=== PATIENT | female | born 1960 | race Caucasian/White ===

== ENCOUNTER → 2017-04-11 | Day surgery (SDC) | payer BC ==
[~2017-04-11] VITALS: Ht 157.5 cm; Wt 79.5 kg
[~2017-04-11] MED LIST: ACETAMINOPHEN 325 MG TAB ONE; ACETAMINOPHEN 325 MG TAB PO PRN; ASPI81TA28 PO; ATOR10TA88 PO; ATROPINE SULFATE 0.1 MG/ML 5ML SYR IV PRN; ERGO1CAP41 PO; FENTANYL CITRATE INJ 50 MCG/1 ML 2 ML VIAL ONE; HEPARIN SOD (PORCINE) 1000 UNIT/ML 10 ML VIAL ONE; LEVO75TA5 PO; METO1TAB31 PO; MIDAZOLAM HCL 1 MG/ML 2ML VIAL ONE; MISCCAP80; NITROGLYCERIN/D5W 100MCG/ML 20ML SYR ONE; NiCARDipine HCL INJ 2.5 MG/ML 10 ML AMP ONE; PREN1MIS44; SODIUM CHLORIDE 0.9% 1000ML 1,000 ML IV SCH; SODIUM CHLORIDE 0.9% 1000ML 250 ML IV PRN; TURM1CAP4
[2017-04-11 07:44] VITALS: BP 137/57; PULSE 72; TEMP 36.6; O2SAT 98; Ht 157.5 cm; Wt 79.5 kg
--- NOTE | 2017-04-11 09:59 | History & Physical Bridge Note ---
H&P Re-Evaluation Bridge Note: I have examined the patient, reviewed the History & Physical and in the interval since the performance of the History & Physical I have noted the following changes of clinical significance: No changes noted
--- NOTE | 2017-04-11 10:06 | [facility] Post Operative Brief Note ---
Preliminary Procedure Note Procedure Date Apr 11, 2017. Pre-Procedure Diagnosis Positive Stress Test, Cardiothoracic Symptom AUC Score 7 Post-Procedure Diagnosis Normal Coronary Arteries Procedure(s) Performed Coronary Angiography, Left Heart Cath, LV Angiography Lpta Dr. Mil Moncada Lacrosse Coach(s) Charbel Benson Estimated Blood Loss <15cc Medication(s) Fentanyl (12.5 mcg IV), Heparin (4000u IV), Nicardipine (300 mcg intraarterial after sheath insertion), Versed (1mg IV), Lidocaine 1% (local infiltration) Preliminary Findings Right dominant coronary anatomy with narrow caliber vessels Minimal luminal irregularities -- no obstructive disease Normal LV function EF 65, no MR Recommendations Medical therapy and/or Counseling Specimens None Fluids (cc crystalloids) 95 Anesthesia Sart 9:11 End 9:51 Procedural Complication(s) None Disposition Product Evangelist Holding/Recovery
[2017-04-11 12:30] VITALS: BP 128/74; PULSE 75; O2SAT 96
--- NOTE | 2017-04-11 13:39 | Discharge Instructions ---
Discharge Instructions Procedure Procedure Date: Apr 11, 2017. Reason for Visit: Abnormal Stress Testing,Angina. Discharge Discharge Date: Apr 11, 2017. Discharge Diagnosis: Non cardiac chest pain Last Recorded Wt (Kilograms): 79.5 Anesthesia Post Anesthesia Instructions: If you have had General Anesthesia or IV Sedation: * Do not drive today. * Resume driving when surgeon permits. * Do not make important decisions or sign legal documents today. * Call surgeon for: 1. Temperature elevations greater than 101 degrees F. 2. Uncontrollable pain. 3. Excessive bleeding. 4. Persistent nausea and vomiting. 5. Medication intolerance (nausea, vomiting or rash). * For nausea and vomiting use only clear liquids such as: tea, soda, bouillon until nausea subsides, then gradually increase diet as tolerated. * If you have any concerns or questions, call your surgeon's office. If physician is unavailable and it is an emergency, call 911 or go to the nearest emergency room. Instructions Activity Recommendations: limitations as noted below Recommended Home Diet: resume previous diet Allergies: Coded Allergies: No Known Allergies (Unverified , 04/11/17) Provider Instructions ACTIVITY RECOMMENDATIONS: Excess manipulation of the wrist should be avoided for the next 24-48 hours. * No lifting over 2 pounds (approximately a 1/2 gallon of milk) with the utilized arm for 24 hours. * No strenuous activity such as bowling or tennis for 3 days. * Keep the site of the procedure covered with a bandage for 24 hours. *You may shower the day after the procedure. Do not take a tub bath or submerge the puncture site in water for the next 3 days. *Do not operate any motorized equipment for 3 days. SPECIAL CARE INSTRUCTIONS: The site may be slightly bruised and sore following your procedure. Should any of the following occur, contact the Dr. who performed your procedure. 1. Redness/inflammation, swelling, chills, or fever, or colored drainage at procedure site within 3-7 days after your procedure. 2. Coldness, discoloration, ongoing numbness, severe pain, or swelling. Expect mild tingling of hand and tenderness at the puncture site for up to three days. If this persists beyond three days, or other symptoms develop, notify the Dr. who performed your procedure. BLEEDING: If the procedure site on your wrist begins to bleed, do not panic 1. Place 1 or 2 fingers firmly just slightly above the insertion site to stop the bleeding. You may be able to feel your pulse as you hold pressure. 2. Lift your finger after 5 minutes to see if the bleeding has stopped. 3. Once the bleeding has stopped, gently wipe the wrist area clean with a bandage. * If the bleeding from your wrist does not stop after 10 minutes, or if there is a large amount of bleeding or spurting, call 911 (do not drive yourself to the hospital). SKIN IRRITATION: * You may experience some redness and/or swelling in the area where radiation was administered. If any skin irritation occurs, please contact your family physician. FOLLOW UP VISIT: Keep any scheduled doctor appointments. Follow Up Additional Instructions: ACTIVITY RECOMMENDATIONS: Excess manipulation of the wrist should be avoided for the next 24-48 hours. * No lifting over 2 pounds (approximately a 1/2 gallon of milk) with the utilized arm for 24 hours. * No strenuous activity such as bowling or tennis for 3 days. * Keep the site of the procedure covered with a bandage for 24 hours. *You may shower the day after the procedure. Do not take a tub bath or submerge the puncture site in water for the next 3 days. *Do not operate any motorized equipment for 3 days. SPECIAL CARE INSTRUCTIONS: The site may be slightly bruised and sore following your procedure. Should any of the following occur, contact the Dr. who performed your procedure. 1. Redness/inflammation, swelling, chills, or fever, or colored drainage at procedure site within 3-7 days after your procedure. 2. Coldness, discoloration, ongoing numbness, severe pain, or swelling. Expect mild tingling of hand and tenderness at the puncture site for up to three days. If this persists beyond three days, or other symptoms develop, notify the Dr. who performed your procedure. BLEEDING: If the procedure site on your wrist begins to bleed, do not panic 1. Place 1 or 2 fingers firmly just slightly above the insertion site to stop the bleeding. You may be able to feel your pulse as you hold pressure. 2. Lift your finger after 5 minutes to see if the bleeding has stopped. 3. Once the bleeding has stopped, gently wipe the wrist area clean with a bandage. * If the bleeding from your wrist does not stop after 10 minutes, or if there is a large amount of bleeding or spurting, call 911 (do not drive yourself to the hospital). SKIN IRRITATION: * You may experience some redness and/or swelling in the area where radiation was administered. If any skin irritation occurs, please contact your family physician. FOLLOW UP VISIT: Keep any scheduled doctor appointments. Follow-up with: Dr Holcomb as scheduled Jasbir Ignacio Recommendations: Call your doctor if: * Temperature above 101 degrees * Pain not relieved by pain medicine ordered * There is increased drainage or redness from any incision * You have any unanswered questions or concerns. Your Doctors Instructions noted above were prepared by provider Mil Moncada. Patient Signature Section: Patient Instructions Signature Page Etelvina Page Patient (or Guardian) Signature/Date: I have read and understand the instructions given to me by my caregivers. Caregiver/RN/Doctor Signature/Date: The above-named patient and/or guardian has received patient instructions on this date. + Original Patient Signature Page (only) stays with chart. Please make copy for patient.
--- NOTE | 2017-04-12 01:40 | CARDIAC CATH REPORT ---
PROCEDURE: Left heart catheterization, coronary and LV angiography. INDICATIONS: Chest pain class 3, abnormal stress testing. BRIEF HISTORY: The patient is a 56-year-old female with recent symptoms of chest pain and discomfort with exertion. Stress test performed on evaluation was equivocal with abnormal EKG response and persistent symptoms had been noted, had class 3 functional capacity and worsening. She is referred for diagnostic cardiac catheterization. ACCESS: Right radial artery. CATHETERS: A 6-Bahamian slender sheath, 5-Bahamian brachial 3.5, 5-Bahamian JL 3.5, 5-Bahamian straight pigtail. CONTRAST: Nonionic, 119 mL IV SALINE: 95 mL SEDATION: Start time 9:11, end time 9:51. SEDATION MONITOR: Marko Mcintyre RN. MEDICATIONS: Versed 1 mg IV, fentanyl 12.5 mg IV. MEDICATIONS: Following arterial sheath insertion, the patient received 250 mcg intraarterial injection of nicardipine. After central access was gained, 5000 units IV heparin was administered. COMPLICATIONS: None. RADIATION EXPOSURE: 6.5 minutes fluoroscopy time, 991 milligrays, DAP score of 6929. RESULTS: CORONARY ANGIOGRAPHY: The patient's coronary anatomy is right dominant. Overall caliber of vessels is small: LEFT MAIN: Left main is long and bifurcates to give rise to left anterior descending and left circumflex and is modest in caliber. There is a 10% distal taper. LEFT ANTERIOR DESCENDING: Left anterior descending is type 2. It gives rise to 2 large diagonal branches in its proximal third and courses to terminate as a very modest caliber vessel, terminating just at the apex with its apical segments being very thin. LEFT CIRCUMFLEX: Once again, a modest caliber vessel with an obtuse marginal posterolateral branch. There is no disease in the left circumflex. RIGHT CORONARY ARTERY: The right coronary is dominant in distribution, modest in caliber, gives rise to a sinoatrial branch, 2 right ventricular branches, a posterior descending artery and a single terminal posterior ventricular branch with PDA and posterior ventricular branch reaching to the apex. There are minimal irregularities in the right coronary artery distribution. LEFT VENTRICULAR ANGIOGRAPHY: Left ventricle was nondilated. Ejection fraction was 55%. There was no mitral insufficiency. HEMODYNAMICS: Initial aortic root pressure was 123/70 with a mean of 94. LV pressure was 129/9 with an LVEDP of 14. Following completion of the procedure, aortic root pressure was 133/76 with a mean of 102. FINAL IMPRESSIONS: 1. Right dominant coronary anatomy with small caliber coronaries and minimal luminal irregularities, but no obstruction. 2. Normal left ventricular size and function, EF 65%, without mitral insufficiency. 3. Normal left heart pressures. RECOMMENDATIONS: The patient will be continued for risk factor modification and medical management, assessment for possible noncardiac source of current complaints.
== END | disposition home or self-care (01) ==
LOC: C.CATH 06:58
PROVIDERS: ATTEND Specialist
DX: R07.89 Other chest pain (principal); I34.1 Nonrheumatic mitral (valve) prolapse; I05.1 Rheumatic mitral insufficiency; E78.5 Hyperlipidemia, unspecified; Z82.49 Family history of ischemic heart disease and other diseases of the circulatory system; R94.39 Abnormal result of other cardiovascular function study